=== PATIENT | female | born 1990 | race Caucasian/White ===

== ENCOUNTER 2019-06-23 10:43 | Outpatient (CLI) | payer OTHER, SELFPAY ==
--- NOTE | ~2019-06-23 | US_ITS ---
US OB transvaginal DATE: 06/23/2019 11:14 INDICATION: Gestational age determination. History of spontaneous abortions. TECHNIQUE: Real-time imaging via transvaginal approach COMPARISON: None FINDINGS: The uterus measures 9.3 cm height, 4.4 cm anteroposterior and 6.3 cm transverse dimension. There is evidence of a gestational sac with yolk sac with normal surrounding hyperechogenicity consis tent with normal decidual reaction. No pole is yet identified. Sac size is too small for gestat ional age determination Left ovarian 2.5 x 1.6 x 2.0 cm cyst. The ovaries and adnexal areas are otherwise unremarkable. No pe lvic free fluid collection is noted.. IMPRESSION: Early intrauterine gestation is suggested, too small to reliably assess gestational age 2.5 x 1.6 x 2.0 cm left ovarian cyst Reviewed, dictated and finalized at [facility]. Reviewed, dictated and finalized at location [facility]. IMPRESSION: Early intrauterine gestation is suggested, too small to reliably as sess gestational age 2.5 x 1.6 x 2.0 cm left ovarian cyst
== END 2019-06-23 10:44 ==
LOC: MICIMG 10:45
PROVIDERS: Visit Provider Obstetrics & Gynecology
DX: O26.21 Pregnancy care for patient with recurrent pregnancy loss, first trimester (principal); Z3A.00 Weeks of gestation of pregnancy not specified; N83.202 Unspecified ovarian cyst, left side
CPT/HCPCS: 76817

== ENCOUNTER 2019-07-05 14:21 | Outpatient (CLI) | payer OTHER, SELFPAY ==
--- NOTE | ~2019-07-05 | US_ITS ---
EXAMINATION: US OB transvaginal DATE: 07/05/2019 14:38 INDICATION: Evaluate viability TECHNIQUE: Real-time transvaginal obstetric ultrasound. FINDINGS: No prior studies for comparison. The uterus measures 10.3 x 5.2 x 6.8 cm. There is an intrauterine gestational sac, with pole id entified. The crown rump length measures 0.72 cm, which correlates with a estimated gestational age of 6 weeks 4 days. heart tones are identified measuring 127 BPM. There is a 2 cm corpus lutea l cyst of the left ovary. IMPRESSION: 1. SL IUP with an EGA of 6 weeks, 4 days (EDC by current ultrasound of 02/24/2020). Reviewed, dictated and finalized at location A. IMPRESSION: 1. SL IUP with an EGA of 6 weeks, 4 days (EDC by current ultrasound of 02/24/20 20).
== END 2019-07-05 14:22 ==
PROVIDERS: Visit Provider Obstetrics & Gynecology
DX: O36.80X0 Pregnancy with inconclusive fetal viability, not applicable or unspecified (principal); Z3A.01 Less than 8 weeks gestation of pregnancy
CPT/HCPCS: 76817

== ENCOUNTER 2019-12-20 14:14 | Observation (INO) | payer OTHER, SELFPAY ==
--- NOTE | 2019-12-20 14:14 | OBADM ---
This patient, Lisa Vazquez, admitted to the OB room OB Post 116 for observation. Patient/family oriented to hospital policies and general routines including ID bracelet, bed and alarms, visiting hours, pain management, procedures, bathroom and other care routines, personal items, smoking policy, room service/diet, and visiting hours. Patient/Family are encouraged to report perceived risks to care and to ask questions if they do not understand what they are told or what they should do.
[2019-12-20 14:30] VITALS: BMI 34.6
[2019-12-20 14:46] VITALS: BP 106/55; PULSE 63
[2019-12-20 14:57] LABS: Basophils Absolute Auto 0.1 K/mm3 (0.0-0.1); Basophils Percent Auto 0.5 % (0.2-1.2); Eosinophils Absolute Auto 0.4 K/mm3 (0-0.3); Eosinophils Percent Auto 2.6 % (0-4.4); Hematocrit 31.3 % (37.0-47.0); Hemoglobin 10.9 g/dL (12.0-15.0); Immature Granulocyte Absolute 0.07 K/mm3 (0.00-0.031); Immature Granulocyte Percent A 0.5 % (0-0.5); Lymphocytes Absolute Auto 2.13 K/mm3 (0.9-3.2); Mean Corpuscular HGB Conc 34.8 g/dl (32-36); Mean Corpuscular Hemoglobin 31.3 pg (26-34); Mean Corpuscular Volume 89.9 fl (80-100); Mean Platelet Volume 10.8 fl (7.4-10.4); Monocytes Percent Auto 7.6 % (2.6-8.5); Neutrophils Absolute Auto 9.7 K/mm3 (1.3-6.7); Neutrophils Percent Auto 72.8 % (45.5-73.1); Platelet Count Result 234 k/mm3 (150-375); Red Blood Count 3.48 M/mm3 (4.2-5.4); Red Cell Distribution Width 13.2 % (11.5-14.5); White Blood Count 13.3 K/mm3 (4.5-10.0)
[2019-12-20 15:01] VITALS: BP 104/53; PULSE 63
[2019-12-20 15:04] LABS: Add Urine Microscopic? YES; Amorphous Sediment Urine Few; Appearance Urine Clear (Clear); Bacteria Urine 1+ /hpf; Bilirubin Urine Negative (Negative); Blood Urine Negative (Negative); Color Urine Straw (Yellow); Glucose Urine UA Negative (Negative); Ketones Urine Negative (Negative); Leukocyte Esterase Ur 1+ LEU/UL (NEGATIVE); Nitrate Urine Negative (Negative); Protein Urine Negative (Negative); RBC Urine 0-2 /hpf (0-2); Specific Grav Ur 1.005 (1.001-1.035); Squamous Epithelial Cell Urine Many /hpf (Few); Urobilinogen Urine Negative mg/dL (<2.0)
[2019-12-20 15:16] VITALS: BP 104/55; PULSE 60
[2019-12-20 15:21] LABS: Alanine Aminotransferase 9 U/L (4-35); Albumin Level 3.2 g/dL (3.5-5.1); Alkaline Phosphatase 79 U/L (38-126); Anion Gap 7 mmol/L (8-16); Aspartate Amino Transferase 16 U/L (14-36); Bilirubin,Total 0.4 mg/dL (0.2-1.3); Blood Urea Nitrogen 3 mg/dL (7-17); Calcium 9.1 mg/dL (8.4-10.2); Carbon Dioxide 23 mmol/L (22-30); Chloride 105 mmol/L (98-107); Estimated Glomerular Filt Rate > 60; Glucose 89 mg/dL (65-105); Potassium 3.8 mmol/L (3.4-5.0); Sodium 135 mmol/L (137-145); Uric Acid 3.3 mg/dL (2.5-7.5)
[2019-12-20 15:31] VITALS: BP 97/54; PULSE 63
[2019-12-20 15:46] VITALS: BP 100/55; PULSE 64
[2019-12-20 16:01] VITALS: BP 110/60; PULSE 60
--- NOTE | 2019-12-20 16:25 | PC.NURSE ---
Called Dr. Perry with pt status and labs. Pt states that she was feeling cramping since 0800, with blurred vision that comes and goes. Pt denies any blurred vision since admission and felt cramping for 10 mins starting at 1535 with only 1 cramp marked and felt per pt since, lasting only 5 sec. Reactive tracing. BPs given.
[2019-12-20 16:44] LABS: Total Protein Urine Random 15 mg/dL
[2019-12-20 17:17] LABS: Creatinine Urine 18.8 mg/dL
--- NOTE | 2019-12-25 11:26 | PM.OBTRLD ---
OB - Triage/Final Diagnosis Evaluation Laboratory results: Laboratory Tests 12/20/19 12/20/19 12/20/19 14:39 14:39 14:39 WBC 13.3 H RBC 3.48 L Hgb 10.9 L Hct 31.3 L MCV 89.9 MCH 31.3 MCHC 34.8 RDW 13.2 Plt Count 234 MPV 10.8 H Immature Gran % (Auto) 0.5 Neut % (Auto) 72.8 Lymph % (Auto) 16.0 L [place] % (Auto) 7.6 Eos % (Auto) 2.6 Baso % (Auto) 0.5 Lymph # (Auto) 2.13 [place] # (Auto) 1.0 H Eos # (Auto) 0.4 H Baso # (Auto) 0.1 Abs Immat Gran (auto) 0.07 H Absolute Neuts (auto) 9.7 H Absolute Nucleated RBC 0.0 Nucleated RBC % 0.0 Sodium Potassium Chloride Carbon Dioxide Anion Gap BUN Creatinine Estim Creat Clear Calc Estimated GFR Glucose Uric Acid Calcium Total Bilirubin AST ALT Alkaline Phosphatase Total Protein Albumin Urine Color Straw Urine Appearance Clear Urine pH 7.0 Ur Specific [place] 1.005 Urine Protein Negative Urine Glucose (UA) Negative Urine Ketones Negative Ur Blood (Man) Negative Urine Nitrate Negative Urine Bilirubin Negative Urine Urobilinogen Negative Ur Leukocyte Esterase 1+ H Urine RBC 0-2 Urine WBC 4-6 H Ur Squamous Epith Cells Many H Amorphous Sediment Few H Urine Bacteria 1+ H U Random Total Protein 15 Urine Creatinine 18.8 12/20/19 14:39 WBC RBC Hgb Hct MCV MCH MCHC RDW Plt Count MPV Immature Gran % (Auto) Neut % (Auto) Lymph % (Auto) [place] % (Auto) Eos % (Auto) Baso % (Auto) Lymph # (Auto) [place] # (Auto) Eos # (Auto) Baso # (Auto) Abs Immat Gran (auto) Absolute Neuts (auto) Absolute Nucleated RBC Nucleated RBC % Sodium 135 L Potassium 3.8 Chloride 105 Carbon Dioxide 23 Anion Gap 7 L BUN 3 L Creatinine 0.40 L Estim Creat Clear Calc Not Reportable Estimated GFR > 60 Glucose 89 Uric Acid 3.3 Calcium 9.1 Total Bilirubin 0.4 AST 16 ALT 9 Alkaline Phosphatase 79 Total Protein 6.0 L Albumin 3.2 L Urine Color Urine Appearance Urine pH Ur Specific [place] Urine Protein Urine Glucose (UA) Urine Ketones Ur Blood (Man) Urine Nitrate Urine Bilirubin Urine Urobilinogen Ur Leukocyte Esterase Urine RBC Urine WBC Ur Squamous Epith Cells Amorphous Sediment Urine Bacteria U Random Total Protein Urine Creatinine Final Diagnosis (1) Blurry vision: Code(s): H53.8 - Other visual disturbances Status: Acute
== END 2019-12-20 16:35 | disposition home or self-care (01) ==
PROVIDERS: Admitting Provider Obstetrics & Gynecology; Visit Provider Obstetrics & Gynecology
DX: O26.899 Other specified pregnancy related conditions, unspecified trimester (principal); H53.8 Other visual disturbances; Z3A.00 Weeks of gestation of pregnancy not specified
CPT/HCPCS: 36415; 80053; 81001; 82570; 84156; 84550; 85025; 87086; 87088; G0378; G0379

== ENCOUNTER 2020-02-17 00:01 | Inpatient (IN) | payer OTHER, SELFPAY ==
[2020-02-17] VITALS (69 sets, daily range): BP systolic 99–146; BP diastolic 46–97; PULSE 57–112; RESP 13; TEMP 36.1–37.1; BMI 34.0
--- NOTE | 2020-02-17 00:01 | LDADM ---
This patient, Lisa Vazquez, was admitted to Labor/Delivery/Recovery 107 on 02/17/20 at 00:01. Plans for labor, pain management and were discussed with patient. Patient/family oriented to hospital policies and general routines including ID bracelet, bed and alarms, visiting hours, pain management, procedures, bathroom and other care routines, personal items, smoking policy, room service/diet and guest tray routines, security routines, and visiting hours. Patient/Family are encouraged to report perceived risks to care and to ask questions if they do not understand what they are told or what they should do. See OBIX for further documentation.
[2020-02-17 00:26] LABS: Basophils Absolute Auto 0.1 K/mm3 (0.0-0.1); Basophils Percent Auto 0.4 % (0.2-1.2); Eosinophils Absolute Auto 0.4 K/mm3 (0-0.3); Eosinophils Percent Auto 2.9 % (0-4.4); Hematocrit 30.9 % (37.0-47.0); Hemoglobin 10.8 g/dL (12.0-15.0); Immature Granulocyte Absolute 0.06 K/mm3 (0.00-0.031); Immature Granulocyte Percent A 0.5 % (0-0.5); Lymphocytes Absolute Auto 2.54 K/mm3 (0.9-3.2); Lymphocytes Percent Auto 21.3 % (18.3-44.2); Mean Corpuscular Hemoglobin 30.3 pg (26-34); Mean Corpuscular Volume 86.8 fl (80-100); Mean Platelet Volume 11.2 fl (7.4-10.4); Monocytes Absolute Auto 0.9 K/mm3 (0.1-0.6); Monocytes Percent Auto 7.9 % (2.6-8.5); Platelet Count Result 242 k/mm3 (150-375); Red Blood Count 3.56 M/mm3 (4.2-5.4); Red Cell Distribution Width 13.3 % (11.5-14.5); White Blood Count 11.9 K/mm3 (4.5-10.0)
[2020-02-17] MEDS: DINOPROSTONE 10 MG VAG INSERT VAGINAL (00:41)
--- NOTE | 2020-02-17 06:37 | WPDANESEPP ---
Anes - Eval Pre Procedure Procedure: Labor epidural Date/Time: 02/17/20 06:37 Surgeon: Orlando Preop Diagnosis: Abd pain with contractions Pre Op Diagnosis: Induction of Labor Patient Data Age: 29 Gender: F Height: 5 ft 4 in Weight: 90 kg Last Vital Signs Temp 98.1 F 02/17/20 02:45 Pulse 82 02/17/20 02:45 BP 107/62 02/17/20 02:45 Allergies Allergy/AdvReac Type Severity Reaction Status Date / Time cefaclor Allergy Unknown Verified 04/23/17 11:14 Home Medications Medication Instructions Recorded Confirmed Type PNV cmb#95-ferrous fumarate-FA 1 tablet PO DAILY 02/10/20 02/17/20 History [] ergocalciferol (vitamin D2) 1,250 mcg PO WEEKLY 02/10/20 02/17/20 History [Vitamin D2] ferrous sulfate [Iron (ferrous 325 mg PO BID 02/10/20 02/17/20 History sulfate)] Laboratory Tests 02/17/20 02/17/20 02/17/20 00:20 00:20 00:20 WBC 11.9 K/mm3 H K/mm3 (4.5-10.0) RBC 3.56 M/mm3 L M/mm3 (4.2-5.4) Hgb 10.8 g/dL L g/dL (12.0-15.0) Hct 30.9 % L % (37.0-47.0) MCV 86.8 fl fl (80-100) MCH 30.3 pg pg (26-34) MCHC 35.0 g/dl g/dl (32-36) RDW 13.3 % % (11.5-14.5) Plt Count 242 k/mm3 k/mm3 (150-375) MPV 11.2 fl H fl (7.4-10.4) Immature Gran % (Auto) 0.5 % % (0-0.5) Neut % (Auto) 67.0 % % (45.5-73.1) Lymph % (Auto) 21.3 % % (18.3-44.2) [place] % (Auto) 7.9 % % (2.6-8.5) Eos % (Auto) 2.9 % % (0-4.4) Baso % (Auto) 0.4 % % (0.2-1.2) Lymph # (Auto) 2.54 K/mm3 K/mm3 (0.9-3.2) [place] # (Auto) 0.9 K/mm3 H K/mm3 (0.1-0.6) Eos # (Auto) 0.4 K/mm3 H K/mm3 (0-0.3) Baso # (Auto) 0.1 K/mm3 K/mm3 (0.0-0.1) Abs Immat Gran (auto) 0.06 K/mm3 H K/mm3 (0.00-0.031) Absolute Neuts (auto) 8.0 K/mm3 H K/mm3 (1.3-6.7) Absolute Nucleated RBC 0.0 K/mm3 K/mm3 (0.0-0.012) Nucleated RBC % 0.0 % % (0.0-0.2) RPR Pending Blood Type O Positive Antibody Screen Negative Patient hx anesthesia problems: none Family hx anesthesia problems: none PMFSH Past Medical History Medical History Asthma Blurry vision Surgical History Surgical History H/O dilation and curettage History of tonsillectomy Family History Family History Son Asthma Social History Social History Smoking status: Never smoker Substance use: never Gender identity (if verbalized by the patient): Female Spiritual care concerns: No Exam Day of Procedure 02/17/20 06:37 Patient weight: obese Neurological: alert and oriented
--- NOTE | 2020-02-17 10:19 | WPDOBADMIT ---
Obstetrics - Admit Note Admission Note: record reviewed. No pertinent additions to the history and/or any subsequent changes in the physical findings that are not consistent with the expected course of the were found. Additions to the history and/or subsequent changes in the physical findings follow. None.Here for MIL at [address] Perry. Cervadil removed. AROM with clear fluid. FHTs reactive. Cervix 2-3//-3
[2020-02-17] MEDS: LACTATED RINGERS 1,000 ML 125 ML IV CONT ×3 (11:14→18:25)
[2020-02-17] MEDS: OXYTOCIN 30 UNITS/NS 500 ML 30 UNITS/500 ML BAG IV CONT (11:15)
--- NOTE | 2020-02-17 15:37 | WPDANESEPP ---
Anes - Eval Pre Procedure Procedure: Labor Epidural Date/Time: 02/17/20 15:37 Surgeon: Orlando Preop Diagnosis: Labor Pain Pre Op Diagnosis: Induction of Labor Patient Data Age: 29 Gender: F Height: 5 ft 4 in Weight: 90 kg Last Vital Signs Temp 36.1 C L 02/17/20 14:39 Pulse 65 02/17/20 15:30 Resp 13 02/17/20 06:55 BP 105/50 L 02/17/20 15:30 Allergies Allergy/AdvReac Type Severity Reaction Status Date / Time cefaclor Allergy Unknown Verified 04/23/17 11:14 Home Medications Medication Instructions Recorded Confirmed Type PNV cmb#95-ferrous fumarate-FA 1 tablet PO DAILY 02/10/20 02/17/20 History [] ergocalciferol (vitamin D2) 1,250 mcg PO WEEKLY 02/10/20 02/17/20 History [Vitamin D2] ferrous sulfate [Iron (ferrous 325 mg PO BID 02/10/20 02/17/20 History sulfate)] Laboratory Tests 02/17/20 02/17/20 02/17/20 00:20 00:20 00:20 WBC 11.9 K/mm3 H K/mm3 (4.5-10.0) RBC 3.56 M/mm3 L M/mm3 (4.2-5.4) Hgb 10.8 g/dL L g/dL (12.0-15.0) Hct 30.9 % L % (37.0-47.0) MCV 86.8 fl fl (80-100) MCH 30.3 pg pg (26-34) MCHC 35.0 g/dl g/dl (32-36) RDW 13.3 % % (11.5-14.5) Plt Count 242 k/mm3 k/mm3 (150-375) MPV 11.2 fl H fl (7.4-10.4) Immature Gran % (Auto) 0.5 % % (0-0.5) Neut % (Auto) 67.0 % % (45.5-73.1) Lymph % (Auto) 21.3 % % (18.3-44.2) [place] % (Auto) 7.9 % % (2.6-8.5) Eos % (Auto) 2.9 % % (0-4.4) Baso % (Auto) 0.4 % % (0.2-1.2) Lymph # (Auto) 2.54 K/mm3 K/mm3 (0.9-3.2) [place] # (Auto) 0.9 K/mm3 H K/mm3 (0.1-0.6) Eos # (Auto) 0.4 K/mm3 H K/mm3 (0-0.3) Baso # (Auto) 0.1 K/mm3 K/mm3 (0.0-0.1) Abs Immat Gran (auto) 0.06 K/mm3 H K/mm3 (0.00-0.031) Absolute Neuts (auto) 8.0 K/mm3 H K/mm3 (1.3-6.7) Absolute Nucleated RBC 0.0 K/mm3 K/mm3 (0.0-0.012) Nucleated RBC % 0.0 % % (0.0-0.2) RPR Pending Blood Type O Positive Antibody Screen Negative : gestational age Patient hx anesthesia problems: none Family hx anesthesia problems: none [facility] Past Medical History Medical History Asthma Blurry vision Surgical History Surgical History H/O dilation and curettage History of tonsillectomy Family History Family History Son Asthma Social History Social History Smoking status: Never smoker Substance use: never Gender identity (if verbalized by the patient): Female Spiritual care concerns: No Exam Day of Procedure 02/17/20 15:37 Patient weight: normal Heart: regular rate and rhythm Lungs: normal air movement Airway: Mallampati scale class II Neurological: alert and oriented
--- NOTE | 2020-02-17 21:13 | P.PCNOB_ITS ---
OB - Delivery Note Procedure Delivery date: 02/17/20 Procedure: events: Labor Induction Induction method: AROM, per pitocin protocol and per cervidil protocol Delivery monitor: external FHT and external uterine Laceration Description: None Specimen: No Quantitative Blood Loss: 350 Anesthesia type: Epidural Disposition: floor [place] Baby Date of : 02/17/20 Time of : 21:03 Weeks of gestation at delivery: 39 Infant gender: Female presentation: vertex position: Left Occiput Anterior Placenta delivery description: Spontaneous cord vessel description: 3 Vessels score one minute: 8 score five minutes: 9
--- NOTE | 2020-02-17 21:19 | PM.OBDSVD ---
DS: Admitting Diagnosis Admitting Diagnosis Admitting Diagnosis: Induction of Labor OB - DS: Summary OB Procedures : None OB Procedures Intrapartum: Spontaneous Vag Delivery OB Procedures: : None Time Spent with Patient Time attestation: Total time spent providing and/or coordinating discharge services: DS: Data Data Completed and Pending Labs on day of discharge: Labs from last 24 hours 02/17/20 02/17/20 02/17/20 00:20 00:20 00:20 WBC 11.9 H RBC 3.56 L Hgb 10.8 L Hct 30.9 L MCV 86.8 MCH 30.3 MCHC 35.0 RDW 13.3 Plt Count 242 MPV 11.2 H Immature Gran % (Auto) 0.5 Neut % (Auto) 67.0 Lymph % (Auto) 21.3 [place] % (Auto) 7.9 Eos % (Auto) 2.9 Baso % (Auto) 0.4 Lymph # (Auto) 2.54 [place] # (Auto) 0.9 H Eos # (Auto) 0.4 H Baso # (Auto) 0.1 Abs Immat Gran (auto) 0.06 H Absolute Neuts (auto) 8.0 H Absolute Nucleated RBC 0.0 Nucleated RBC % 0.0 RPR Pending Blood Type O Positive Antibody Screen Negative Discharge Plan Discharge Attending physician on discharge: Magy Johnston Discharging Clinician: Magy Johnston Anticipated Discharge Date/Time: 02/19/20 10:17 Patient Disposition: Home, Self-Care Activity: may shower and pelvic rest Diet: regular Discharge Instructions: Education: Mom and Baby Guide Given to: Follow-Up: Call your delivering provider's office for an appointment to be seen in: Mom and baby should come to the [facility] for the follow-up appointment. Appointment Date/Time: 02/21/2020 at 8:00am What to expect at your follow-up visit: follow-up assessment Call [phone] if you are unable to keep your appointment time. BREAST CARE: * Wear a snug supportive bra. * For engorgement discomfort: Breast Feeding: * Apply warm moist washcloths * Express milk as needed to relieve engorgement * Wear loose clothing Bottle Feeding: * May apply ice packs * For sore nipples: * Identify correct latch-on * Apply warm moist washcloths before and after nursing * Air dry nipples after nursing * May apply Lansinoh cream to nipples ABDOMINAL INCISION: (if applicable) * Allow incision to air dry * Do NOT use lotions for powders on your incision * When showering, allow soap and water to run over the incision, but do not wash incision EPISIOTOMY/PERINEAL CARE: * Until bleeding stops, use your luz maria bottle after urinating * Change your pad frequently throughout the day * You may take sitz baths several times a day (fill your bathtub with warm water and soak for 20 minutes.) Do NOT bathe in the water * No tub baths until seen by your physician - You may shower ACTIVITY: * Rest as much as possible. * Do not exercise or lift anything heavier than your baby (such as laundry or other children.) * Avoid stairs or driving as much as possible. * Do not put anything into the vagina. No douching, tampons, or sexual activity until seen by physician. NOTIFY PHYSICIAN IF YOU HAVE ANY QUESTIONS OR IF ANY OF THE FOLLOWING SYMPTOMS OCCUR: * If your episiotomy or incision becomes red, swollen, or more painful than what you have experienced in the hospital. * If your vaginal bleeding becomes foul smelling. * If your vaginal bleeding becomes more heavy than a period or if your bleeding changes from pink to bright red. However, you may pass an occasional walnut-sized clot once or twice for the first week . * If you experience a sharp, shooting pain in you calves. * If you discover a hard, reddened area on your breast or if you experience flu-like symptoms. DIET: * Eat regular, well-balanced meals. * Drink plenty of fluids daily. If , drink to thirst. Patient Instructions: Antibiotic Form Stand Alone Forms: General Discharge Information
[2020-02-17] MEDS: OXYTOCIN 30 UNITS/NS 500 ML 30 UNITS/500 ML BAG 125 UNITS IV CONT (21:42)
[2020-02-17] MEDS: BENZOCAINE 20% AER SPR (*SP) 56 GM CAN 1 SPRAY TOPICAL (22:50)
[2020-02-17] MEDS: LANOLIN (LANSINOH) 7.5 GM CREAM 1 APPLIC TOPICAL (22:50)
[2020-02-17] MEDS: WITCH HAZEL 40 PADS 1 PAD TOPICAL (22:50)
--- NOTE | 2020-02-18 00:23 | OBPPTRN ---
Patient transferred to post room #290 via wheelchair with baby in bassinet. Support person present. Oriented to unit, room, information board, rooming in, admission packet and security measures. Patient verbalizes understanding.
[2020-02-18 00:41] VITALS: BP 113/71; PULSE 75; RESP 18; TEMP 36.8; O2SAT 98
[2020-02-18] MEDS: IBUPROFEN 600 MG TABLET PO ×3 (04:23→23:04)
[2020-02-18 04:46] LABS: Hematocrit 27.8 % (37.0-47.0); Hemoglobin 9.7 g/dL (12.0-15.0)
[2020-02-18 08:10] VITALS: BP 109/72; PULSE 58; RESP 18; TEMP 36.9; O2SAT 100
[2020-02-18 09:00] LABS: Rapid Plasma Reagin Non-Reactive (NonReactive)
--- NOTE | 2020-02-18 09:15 | WPDANLDPN2 ---
Anes-Prog Note L&D Date/Time: 02/18/20 09:15 Comfortable throughout: labor and delivery Neuraxial method: epidural Epidural/Spinal procedure site: clean & non-tender Neuro status: Neuro function grossly intact. Cardiovascular status: normal Respiratory status: normal Airway patency: baseline Mental status: baseline Post-Op hydration status: normal Vital Signs: Last Vital Signs Temp 36.9 C 02/18/20 08:10 Pulse 58 L 02/18/20 08:10 Resp 18 02/18/20 08:10 BP 109/72 02/18/20 08:10 Pulse Ox 100 02/18/20 08:10 Pain score (VAS): 0 I/O: Intake & Output 02/17/20 02/18/20 02/18/20 23:59 07:59 15:59 Intake Total 1500 Output Total 100 Balance 1500 -100 Post-procedural complaints: none Patient feedback: Patient satisfied with anesthetic care.
--- NOTE | 2020-02-18 11:08 | PM.OBPNVD ---
OB - PN: Subj Subjective Date/time seen: 02/18/20 11:08 Patient comments: no complaints and pain well controlled baby status: doing well OB - PN: Obj Data Labs CBC & Chem 7: 02/18/20 04:33 Labs: Laboratory Results - last 24 hr 02/17/20 02/18/20 00:20 04:33 Hgb 9.7 L Hct 27.8 L RPR Non-reactive OB - PN A/P Plan day: 1 Plan: routine care Time Spent With Patient Time: Total time spent is greater than 50% in coordination of care (as documented) at patient's floor/unit and/or counseling patient: Exam : Bimanual exam- vagina & uterus: other (Uterus firm, nt @U)
[2020-02-18] MEDS: DOCUSATE SODIUM 100 MG CAPSULE PO (16:58)
[2020-02-18] MEDS: POLYSACCHARIDE IRON COMPLEX 150 MG CAPSULE PO (16:58)
[2020-02-18] MEDS: MULTIVIT/MIN/PREN/FOL AC/IRON TABLET 1 TAB PO (16:58)
[2020-02-18 19:20] VITALS: BP 122/79; PULSE 59; RESP 16; TEMP 36.3; O2SAT 100
[2020-02-18] MEDS: ACETAMINOPHEN 325 MG TABLET 650 MG PO (21:18)
[2020-02-19 09:15] VITALS: BP 133/75; PULSE 57; RESP 12; TEMP 36.6; O2SAT 100
[2020-02-19] MEDS: MULTIVIT/MIN/PREN/FOL AC/IRON TABLET 1 TAB PO (09:17)
[2020-02-19] MEDS: POLYSACCHARIDE IRON COMPLEX 150 MG CAPSULE PO (09:17)
[2020-02-19] MEDS: MEASLES,MUMPS,RUBELLA VACCINE 0.5 ML VIAL SUB-Q (09:18)
[2020-02-19] MEDS: DOCUSATE SODIUM 100 MG CAPSULE PO (09:18)
--- NOTE | 2020-02-19 10:16 | PM.OBPNVD ---
OB - PN: Subj Subjective Date/time seen: 02/19/20 10:16 Patient comments: no complaints baby status: doing well OB - PN: Obj Data Labs CBC & Chem 7: 02/18/20 04:33 OB - PN A/P Plan day: 2 Plan: routine care, discharge home and other (declines control) Time Spent With Patient Time: Total time spent is greater than 50% in coordination of care (as documented) at patient's floor/unit and/or counseling patient: Exam : Bimanual exam- vagina & uterus: other (Uterus firm, nt @U)
--- NOTE | 2020-02-19 11:00 | PC.NURSE ---
Patient verbalized she watched discharge video online.
[2020-02-21 07:49] VITALS: BP 151/98; PULSE 75; RESP 24; TEMP 36.9; O2SAT 99
== END 2020-02-19 11:35 | disposition home or self-care (01) | DRG 807 ==
LOC: ANHLDR 02-18 01:03 → ANHOB2 02-19 10:18 → ANHLDR 02-21 11:51 → ANHOB2 02-21 11:51
PROVIDERS: Admitting Provider Obstetrics & Gynecology; Visit Provider Obstetrics & Gynecology Gynecology
DX: O99.214 Obesity complicating childbirth (principal); Z37.0 Single live birth; E66.9 Obesity, unspecified; Z3A.39 39 weeks gestation of pregnancy
CPT/HCPCS: 36415; 85014; 85018; 85025; 86592; 86850; 86900; 86901; 90710; A9270; J2590; J2795; J7120

== ENCOUNTER 2020-02-21 08:38 | Outpatient (CLI) | payer OTHER, SELFPAY ==
[2020-02-21] VITALS (27 sets, daily range): BP systolic 125–162; BP diastolic 73–104; PULSE 51–69
[2020-02-21 09:35] LABS: Basophils Absolute Auto 0.1 K/mm3 (0.0-0.1); Basophils Percent Auto 0.6 % (0.2-1.2); Eosinophils Absolute Auto 0.6 K/mm3 (0-0.3); Hematocrit 27.4 % (37.0-47.0); Hemoglobin 9.3 g/dL (12.0-15.0); Immature Granulocyte Absolute 0.06 K/mm3 (0.00-0.031); Immature Granulocyte Percent A 0.5 % (0-0.5); Lymphocytes Absolute Auto 1.64 K/mm3 (0.9-3.2); Lymphocytes Percent Auto 14.1 % (18.3-44.2); Mean Corpuscular HGB Conc 33.9 g/dl (32-36); Mean Corpuscular Hemoglobin 29.6 pg (26-34); Mean Corpuscular Volume 87.3 fl (80-100); Mean Platelet Volume 10.6 fl (7.4-10.4); Monocytes Absolute Auto 0.7 K/mm3 (0.1-0.6); Monocytes Percent Auto 5.7 % (2.6-8.5); Neutrophils Absolute Auto 8.6 K/mm3 (1.3-6.7); Neutrophils Percent Auto 74.1 % (45.5-73.1); Platelet Count Result 255 k/mm3 (150-375); Red Blood Count 3.14 M/mm3 (4.2-5.4); Red Cell Distribution Width 13.2 % (11.5-14.5); White Blood Count 11.6 K/mm3 (4.5-10.0)
--- NOTE | 2020-02-21 09:40 | PC.NURSE ---
Dr. Johnston on unit. Informed of CBC results and BPs. Orders received.
[2020-02-21 09:47] LABS: Alanine Aminotransferase 21 U/L (4-35); Albumin Level 2.7 g/dL (3.5-5.1); Alkaline Phosphatase 109 U/L (38-126); Anion Gap 5 mmol/L (8-16); Aspartate Amino Transferase 35 U/L (14-36); Bilirubin,Total 0.3 mg/dL (0.2-1.3); Blood Urea Nitrogen 5 mg/dL (7-17); Calcium 8.3 mg/dL (8.4-10.2); Carbon Dioxide 25 mmol/L (22-30); Chloride 108 mmol/L (98-107); Estimated Glomerular Filt Rate > 60; Glucose 91 mg/dL (65-105); Potassium 3.4 mmol/L (3.4-5.0); Sodium 138 mmol/L (137-145); Uric Acid 4.9 mg/dL (2.5-7.5)
[2020-02-21] MEDS: NIFEdipine 30 MG TAB.ER.24 PO (09:55)
[2020-02-21] MEDS: ACETAMINOPHEN 500 MG TABLET 1000 MG PO (09:55)
--- NOTE | 2020-02-21 11:10 | PC.NURSE ---
Pt states that headache is gone and denies other symptoms.
--- NOTE | 2020-02-21 12:53 | PC.NURSE ---
Called Dr. Johnston with lab results and BPs. Orders received.
[2020-02-21] MEDS: LABETALOL HCL 100 MG TABLET PO (13:14)
--- NOTE | 2020-02-21 15:26 | PC.NURSE ---
Called Dr. Johnston with BPs. Informed of heart rate in the 50's-60's since admission. Orders received.
== END 2020-02-21 16:06 | disposition home or self-care (01) ==
LOC: ANHOBOP 08:47 → ANHOBPP 08:48
PROVIDERS: Visit Provider Obstetrics & Gynecology Gynecology
DX: O13.3 Gestational [pregnancy-induced] hypertension without significant proteinuria, third trimester (principal); Z3A.39 39 weeks gestation of pregnancy
CPT/HCPCS: 36415; 80053; 84550; 85025; 99199; A9270

== ENCOUNTER 2022-02-01 10:55 | Emergency (ER) | payer BC, SELFPAY ==
[2022-02-01 11:00] VITALS: BP 141/69; PULSE 62; RESP 16; TEMP 36.6; O2SAT 100
--- NOTE | 2022-02-01 11:30 | ED.URI ---
HPI - URI/Sore Throat General Chief Complaint: Upper Respiratory Infection Stated Complaint: sore throat chills cough Time Seen by Provider: 02/01/22 11:30 Source: patient and RN notes reviewed Mode of arrival: ambulatory Limitations: no limitations History of Present Illness HPI Narrative: 31-year-old female presented for complaints of cough, body aches and sweats over the last 2 days. Throat and mid chest pain with coughing. States the onset of symptoms, she passed out at the dentist office, was told her blood pressure was low. She denies running a fever, shortness of breath, wheezing, nausea, vomiting, diarrhea, shortness of breath or wheezing. She is taking DayQuil and NyQuil for symptoms. Endorses her daughter was sick last week diagnosed with virus and was tested negative for RSV, flu MD elicited complaint: cough Related Data Allergies Allergy/AdvReac Type Severity Reaction Status Date / Time cefaclor Allergy Unknown Verified 04/23/17 11:14 Review of Systems Review of Systems: CONSTITUTIONAL: Endorses malaise, chills, sweats EYES: Denies visual changes, redness, or discharge ENT: Reports rhinorrhea, congestion, otalgia, sore throat CARDIOVASCULAR: Denies chest pain, palpitations, edema RESPIRATORY: Reports cough, post nasal drainage. Denies dyspnea GASTROINTESTINAL: Denies abdominal pain, nausea, vomiting, diarrhea MUSCULOSKELETAL: Endorses myalgia NEUROLOGIC: Denies headache PMFSH Past Medical History Medical History Asthma Blurry vision Surgical History Surgical History H/O dilation and curettage History of tonsillectomy Family History Family History Son Asthma Social History Social History Smoking status: Never smoker Substance use: never Gender identity (if verbalized by the patient): Female Spiritual care concerns: No Exam Narrative: GENERAL: Ill-appearing, nontoxic EYES: PERRLA, conjunctivae clear ENT: Mucous membranes moist. TMs pearly alvarez with light reflex bilaterally; no tragal tenderness. Oropharynx erythematous without lesions or exudate, no drooling, no hoarseness, no trismus, uvula midline. No tripod positioning, muffled voice, soft palate or pharyngeal wall bulging NECK: Supple. No lymphadenopathy CHEST: Clear to auscultation, breath sounds equal. No wheezing, rhonchi, rales, or stridor. No respiratory distress, speaks in full sentences. HEART: Regular rate and rhythm. No murmur heard. SKIN: Warm, dry, no rash. NEURO: Alert and oriented x3. Course Course Emergency Course: Patient is aware of diagnosis, understands and agrees to treatment plan. Anticipatory guidance given. Patient agrees to follow-up as directed and is aware of reasons to seek care at the emergency department. Portions of this record may have been created with voice recognition software Level of Care: Express Care Visit Vital Signs Vital signs: Vital Signs Temperature 97.8 F 02/01/22 11:00 Pulse Rate 62 02/01/22 11:00 Respiratory Rate 16 02/01/22 11:00 Blood Pressure 141/69 H 02/01/22 11:00 Pulse Oximetry 100 02/01/22 11:00 Oxygen Delivery Room Air 02/01/22 11:00 Temperature 97.8 F 02/01/22 11:00 Pulse Rate 62 02/01/22 11:00 Respiratory Rate 16 02/01/22 11:00 Blood Pressure 141/69 H 02/01/22 11:00 Pulse Oximetry 100 02/01/22 11:00 Oxygen Delivery Room Air 02/01/22 11:00 reviewed MDM - URI/Sore Throat MDM Narrative Medical decision making narrative: Flu and Strep negative, results reviewed with patient. She states she will her test herself at home for COVID. Advised supportive measures and signs/symptoms to go to the ER. Pt is appropriate for outpt treatment and f/u. Differential Diagnosis Differential diagnosis: Like
== END 2022-02-01 11:53 | disposition home or self-care (01) ==
PROVIDERS: Emergency Provider Nurse Practitioner Family
DX: B34.9 Viral infection, unspecified (principal); J45.909 Unspecified asthma, uncomplicated
CPT/HCPCS: 87081; 87804; 87880; 99213; G0463